=== PATIENT | female | born 1945 | race Caucasian/White ===

== ENCOUNTER → 2017-01-14 16:38 | Outpatient (CLI) | payer MEDICARE, OTHER | END | disposition home or self-care (01) | LOC: D.MAMMO 01-05 09:15 | DX: Z12.31 Encounter for screening mammogram for malignant neoplasm of breast (principal) ==

== ENCOUNTER → 2018-01-18 17:57 | Outpatient (CLI) | payer MEDICARE, OTHER | END | disposition home or self-care (01) | LOC: D.MAMMO 09:00 | DX: Z12.31 Encounter for screening mammogram for malignant neoplasm of breast (principal) ==

== ENCOUNTER 2019-01-24 11:00 | Outpatient (CLI) | payer MEDICARE, OTHER | END 2019-01-24 11:30 | disposition home or self-care (01) | LOC: D.MAMMO 11:00 | PROVIDERS: ATTEND Family Medicine | DX: Z12.31 Encounter for screening mammogram for malignant neoplasm of breast (principal) ==

== ENCOUNTER 2019-01-27 08:00 | Outpatient (CLI) | payer MEDICARE, OTHER | END 2019-01-27 10:00 | disposition home or self-care (01) | LOC: D.MAMMO 08:00 | PROVIDERS: ATTEND Family Medicine | DX: R92.8 Other abnormal and inconclusive findings on diagnostic imaging of breast (principal) ==